=== PATIENT | female | born 1965 | race Caucasian/White ===

== ENCOUNTER → 2022-06-28 13:48 | Outpatient (CLI) | payer OTHER, SELFPAY ==
--- NOTE | ~2022-06-28 | CT_ITS ---
EXAMINATION: CT sinus wo con DATE: 06/28/2022 13:59 INDICATION: Previous right ethmoidectomy. TECHNIQUE: Computed tomography (CT) of the paranasal sinuses was performed without intravenous contra st. The dose-length product was 417.98 mGy-cm. Automated exposure control and iterative reconstructio n technique were employed. COMPARISON: None FINDINGS: There are surgical changes of prior right knee thyroidectomy. There is hypertrophy of the i nferior turbinates. Mild mucosal thickening of the right maxillary sinus. Left ostiomeatal unit is pa tent. No significant nasal septal deviation. No air-fluid levels or mucoperiosteal reaction. Mastoids are pneumatized. IMPRESSION: 1. Mild right maxillary sinus disease. Reviewed, dictated and finalized at location L. LIFE BIOLOGIST
== END ==
PROVIDERS: PCP Physician Assistant; Visit Provider Otolaryngology
DX: R51.9 Headache, unspecified (principal)
CPT/HCPCS: 70486

== ENCOUNTER 2022-07-05 08:26 | Emergency (ER) | payer OTHER, SELFPAY ==
--- NOTE | ~2022-07-05 | XR_ITS ---
EXAMINATION: XR chest 1V portable 07/05/2022 09:20 INDICATION: Hypertension PROCEDURE: AP portable chest COMPARISON: No prior studies for comparison. FINDINGS: The lungs are clear. The cardiomediastinal silhouette is within normal limits. There are no pleural effusions. There is no pneumothorax suspected. IMPRESSION: 1: NO ACUTE CARDIOPULMONARY DISEASE. Reviewed, dictated and finalized at location L. TAL SALES ASSISTANT
--- NOTE | ~2022-07-05 | CT_ITS ---
EXAMINATION: CT brain wo con DATE: 07/05/2022 10:22 INDICATION: Hypertension. Headache. TECHNIQUE: Computed tomography (CT) of the head was performed without intravenous contrast. The dose- length product was 605.33 mGy-cm. Automated exposure control and iterative reconstruction technique w ere employed. COMPARISON: No prior studies for comparison. FINDINGS: Brain parenchymal volume is normal for age. No ventriculomegaly or midline shift. Normal gr ay-white differentiation. Basilar cisterns are patent. Paranasal sinuses and mastoids are pneumatized . No depressed skull fractures. No acute infarction, hemorrhage, mass or mass effect. IMPRESSION: 1. No acute intracranial abnormality. Reviewed, dictated and finalized at location L. ICULUM ADVISORY TEACHER
[2022-07-05 08:30] VITALS: BP 180/97; PULSE 79; RESP 17; TEMP 36.8; O2SAT 99
--- NOTE | 2022-07-05 08:40 | ECG_ITS ---
Measurements Intervals [place] Rate: 71 P: 65 NH: 172 QRS: -72 QRSD: 112 T: 50 QT: 398 QTc: 433 Interpretive Statements SINUS RHYTHM POSSIBLE LEFT ATRIAL ENLARGEMENT INCOMPLETE RIGHT BUNDLE BRANCH BLOCK LEFT ANTERIOR FASCICULAR BLOCK BORDERLINE T WAVE ABNORMALITY- ANTERIOR LEADS BASELINE ARTIFACT- III, AVL ABNORMAL ECG COMPARISON TO PRIOR ECG 07-05-22 8:49 NO SIGNIFICANT CHANGES Electronically Signed On 07-05-2022 9:46:52 FOOD INSPECTOR by Caleb Urias D.O.
[2022-07-05 08:54] VITALS: RESP 16; O2SAT 100
[2022-07-05 09:06] LABS: Basophils Percent Auto 0.6 % (0.2-1.2); Eosinophils Absolute Auto 0.3 K/mm3 (0-0.3); Eosinophils Percent Auto 4.8 % (0-4.4); Hematocrit 43.3 % (37.0-47.0); Hemoglobin 14.3 g/dL (12.0-15.0); Immature Granulocyte Absolute 0.02 K/mm3 (0.00-0.031); Immature Granulocyte Percent A 0.3 % (0-0.5); Lymphocytes Absolute Auto 1.38 K/mm3 (0.9-3.2); Lymphocytes Percent Auto 19.9 % (18.3-44.2); Mean Corpuscular Hemoglobin 30.8 pg (26-34); Mean Corpuscular Volume 93.1 fl (80-100); Mean Platelet Volume 9.2 fl (7.4-10.4); Monocytes Absolute Auto 0.6 K/mm3 (0.1-0.6); Monocytes Percent Auto 8.1 % (2.6-8.5); Neutrophils Absolute Auto 4.6 K/mm3 (1.3-6.7); Neutrophils Percent Auto 66.3 % (45.5-73.1); Platelet Count Result 273 k/mm3 (150-375); Red Blood Count 4.65 M/mm3 (4.2-5.4); White Blood Count 6.9 K/mm3 (4.5-10.0)
[2022-07-05 09:10] LABS: Appearance Urine Clear (Clear); Bilirubin Urine Negative (Negative); Blood Urine Negative (Negative); Color Urine Yellow (Yellow); Glucose Urine UA Negative (Negative); Ketones Urine Negative (Negative); Leukocyte Esterase Ur Negative LEU/UL (Negative); Nitrate Urine Negative (Negative); Protein Urine Negative (Negative); Specific Grav Ur 1.003 (1.001-1.035); Urobilinogen Urine 0.2 mg/dL (<2.0); pH Urine 6.5 (5.0-9.0)
[2022-07-05 09:15] LABS: Alanine Aminotransferase 32 U/L (6-35); Albumin Level 4.4 g/dL (3.5-5.1); Alkaline Phosphatase 60 U/L (38-126); Anion Gap 5 mmol/L (8-16); Aspartate Amino Transferase 36 U/L (14-36); Bilirubin,Total 0.4 mg/dL (0.2-1.3); Blood Urea Nitrogen 16 mg/dL (7-17); Calcium 9.5 mg/dL (8.4-10.2); Carbon Dioxide 31 mmol/L (22-30); Chloride 101 mmol/L (98-107); Estimated CRCL calculation 82 ml/min; Estimated Glomerular Filt Rate > 60; Glucose 98 mg/dL (65-110); Potassium 3.9 mmol/L (3.4-5.0); Sodium 137 mmol/L (137-145)
[2022-07-05 09:17] LABS: Prothrombin Time 12.4 Seconds (11.1-14.7)
[2022-07-05 09:21] LABS: Add Urine Microscopic? NO
[2022-07-05 09:26] LABS: NT Pro B Type Natriuretic Pept 146 pg/mL (19.9-100); Troponin I < 0.012 ng/mL (0.000-0.034)
--- NOTE | 2022-07-05 09:44 | ED.GENADULT ---
HPI - General Adult General Chief complaint: Recheck/Abnormal Lab/Rx Stated complaint: Extremely high blood pressure Time Seen by Provider: 07/05/22 08:40 History of Present Illness HPI narrative: 57-year-old female presenting to the emergency department for evaluation of hypertension. 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 Patient has no prior diagnosis of hypertension. Patient did buy a blood pressure cuff and intermittently checks her blood pressure. Patient states over the last few weeks her blood pressures have been running higher. Patient checked her blood pressure a arm cuff today and it was found to be in the 180s systolic. Patient states he does have some headache associated with this. Patient states she always has some baseline headache. Patient states she did have a short episode of chest pain while in the ED but denies any chest pain previously denies any chest pain currently. Patient has no prior history of [place] Patient presented to the emerged department with her family. Related Data Allergies Allergy/AdvReac Type Severity Reaction Status Date / Time No Known Allergies Allergy Unverified 06/25/22 08:41 Review of Systems Review of Systems: CONSTITUTIONAL: Denies fever, chills, or sweats. EYES: Denies visual changes, redness, or discharge. ENT: Denies rhinorrhea, congestion, sore throat, or otalgia. CARDIOVASCULAR: See HPI RESPIRATORY: Denies cough or dyspnea. GASTROINTESTINAL: Denies abdominal pain, nausea, vomiting, or diarrhea. GENITOURINARY: Denies dysuria or hematuria. SKIN: Denies rash or itching. MUSCULOSKELETAL: Denies back pain, joint pain, or myalgia. NEUROLOGIC: See HPI [facility] Past Medical History Medical History Chronic migraine Sinusitis with nasal polyps Surgical History Surgical History History of hysterectomy Family History Family History Father Patient's father is in good health Hypertension Mother Cerebrovascular accident Hypertension Family history of malignant neoplasm of breast in first degree relative Grandparent Family history of primary malignant neoplasm of liver Other Depression Family history of arthritis Family history of heart disease in male family member before age 55 Social History Social History Smoking status: Former smoker Second hand tobacco smoke exposure: No Smoking end date: 05/06/10 Alcohol intake: current Lack of Transportation: No Lack of Food: Never True Current Housing: I Have Housing Concerned About Future Housing: No Difficulty Paying Gas/Electric Bills: No Difficulty Paying for Meds: No Currently Unemployed: No Education: Master's Degree or Higher Difficulty w/ Childcare or Family Care: No Exam Narrative: APPEARANCE: Well appearing, no pain, no distress, well-nourished. HEAD: normocephalic, atraumatic. EYES: PERRLA/EOMI, conjunctivae clear. NOSE: Normal no drainage EARS:TMS clear with good light reflex. THROAT: Pharynx clear, no exudate. NECK: Supple. No adenopathy, no masses. RESPIRATORY: Airway patent, respirations nonlabored. Clear to auscultation bilaterally, no rales, rhonchi, wheezing. CARDIOVASCULAR: Regular rate and rhythm without murmurs rubs or gallops. ABDOMINAL: Soft, nontender, nondistended, normal bowel sounds MUSCULOSKELETAL: Moves all extremities. Strength/ROM intact, No edema, No calf tenderness. NEURO: Alert. Cranial nerves II through XII intact. Good gait. Good coordination SKIN: Warm, dry. Normal Color Course Course Emergency Course: 67-year-old female history of untreated hypertension presenting to the ED for elevated blood pressures. Patient was hypertensive upon arrival to the e
[2022-07-05 09:50] VITALS: BP 174/89; PULSE 68; RESP 18; O2SAT 100
[2022-07-05] MEDS: hydrALAZINE HCL 20 MG/ML VIAL 10 MG IV PUSH (10:03)
[2022-07-05 10:34] VITALS: BP 145/72; PULSE 65; RESP 20; O2SAT 99
[2022-07-05] MEDS: hydroCHLOROthiazide 25 MG TABLET PO (11:29)
[2022-07-05 12:08] LABS: Troponin I < 0.012 ng/mL (0.000-0.034)
[2022-07-05 12:38] VITALS: BP 156/73; PULSE 65; RESP 15; O2SAT 100
== END 2022-07-05 12:40 | disposition home or self-care (01) ==
PROVIDERS: Emergency Provider Emergency Medicine; PCP Physician Assistant
DX: I10 Essential (primary) hypertension (principal); Z87.891 Personal history of nicotine dependence
CPT/HCPCS: 36415; 70450; 71045; 80053; 81003; 83880; 84484; 85025; 85610; 85730; 93005; 96374; 99284; A9270; J0360

== ENCOUNTER 2022-08-20 15:34 | Outpatient (CLI) | payer OTHER, SELFPAY ==
--- NOTE | ~2022-08-20 | MM_ITS ---
EXAMINATION: MM screening cindy BI w areli HISTORY: Screening mammogram, family history of breast cancer in her mother. TECHNIQUE: Craniocaudal and mediolateral oblique 3-D tomosynthesis images were obtained and synthetic 2-D images were generated. CAD analysis was submitted and interpreted. COMPARISON: 07/15/2013 BREAST PARENCHYMAL COMPOSITION:The breasts are heterogeneously dense, which may obscure small masses. FINDINGS: Benign calcifications are noted. Left breast biopsy clip noted. No suspicious mass, calcifi cation, or architectural distortion are identified in either breast to suggest malignancy. There has been no suspicious interval change. IMPRESSION: No mammographic evidence of malignancy. Recommend routine screening mammography in one year. BI-RADS Category 2: Benign finding(s). Reviewed, dictated and finalized at location .
== END 2022-08-20 15:35 | disposition home or self-care (01) ==
PROVIDERS: PCP Physician Assistant; Visit Provider Physician Assistant
DX: Z12.31 Encounter for screening mammogram for malignant neoplasm of breast (principal)
CPT/HCPCS: 77063; 77067

== ENCOUNTER 2022-10-07 07:24 | Emergency (ER) | payer OTHER, SELFPAY ==
--- NOTE | ~2022-10-07 | XR_ITS ---
XR chest 2V DATE: 10/07/2022 08:10 INDICATION: Chest pressure starting this morning. History of hypertension. TECHNIQUE: PA and lateral views COMPARISON: 07/05/2022 portable AP chest FINDINGS: Normal heart size. No hilar or mediastinal enlargement. No pulmonary infiltrate or consolid ation, pleural effusion or pulmonary vascular congestion or pneumothorax. IMPRESSION: Negative Reviewed, dictated and finalized at location A. IMPRESSION: Negative
[2022-10-07 07:29] VITALS: BP 132/79; PULSE 62; RESP 18; O2SAT 100
--- NOTE | 2022-10-07 07:29 | ECG_ITS ---
Measurements Intervals [place] Rate: 60 P: 74 HI: 176 QRS: 145 QRSD: 118 T: 55 QT: 445 QTc: 448 Interpretive Statements SINUS RHYTHM POSSIBLE LEFT ATRIAL ENLARGEMENT [-0.1mV P WAVE IN V1/V2] INCOMPLETE RIGHT BUNDLE BRANCH BLOCK [90+ ms QRS DURATION, TERMINAL R IN V1/V2, 40+ ms S IN I/aVL/V4/V5/V6] COMPARED TO ECG 07/05/2022 08:50:05 NO SIGNIFICANT CHANGES Electronically Signed On 10-07-2022 12:17:27 CDT by Skylar Lenz M.D.
[2022-10-07 07:32] VITALS: PULSE 62
[2022-10-07 07:39] LABS: Basophils Percent Auto 0.2 % (0.2-1.2); Eosinophils Absolute Auto 0.2 K/mm3 (0-0.3); Eosinophils Percent Auto 3.3 % (0-4.4); Hematocrit 39.5 % (37.0-47.0); Hemoglobin 13.3 g/dL (12.0-15.0); Immature Granulocyte Absolute 0.02 K/mm3 (0.00-0.031); Immature Granulocyte Percent A 0.3 % (0-0.5); Lymphocytes Absolute Auto 1.58 K/mm3 (0.9-3.2); Lymphocytes Percent Auto 25.9 % (18.3-44.2); Mean Corpuscular HGB Conc 33.7 g/dl (32-36); Mean Corpuscular Hemoglobin 30.9 pg (26-34); Mean Corpuscular Volume 91.6 fl (80-100); Mean Platelet Volume 9.2 fl (7.4-10.4); Monocytes Absolute Auto 0.6 K/mm3 (0.1-0.6); Neutrophils Absolute Auto 3.7 K/mm3 (1.3-6.7); Neutrophils Percent Auto 60.3 % (45.5-73.1); Platelet Count Result 270 k/mm3 (150-375); Red Blood Count 4.31 M/mm3 (4.2-5.4); Red Cell Distribution Width 12.4 % (11.5-14.5); White Blood Count 6.1 K/mm3 (4.5-10.0)
[2022-10-07 07:52] LABS: INR 0.9
[2022-10-07 07:53] LABS: Partial Thromboplastin Time 23.4 SECONDS (22.3-36.8)
[2022-10-07 07:56] LABS: Alanine Aminotransferase 29 U/L (6-35); Albumin Level 4.1 g/dL (3.5-5.1); Alkaline Phosphatase 59 U/L (38-126); Anion Gap 5 mmol/L (8-16); Aspartate Amino Transferase 36 U/L (14-36); Bilirubin,Total 0.4 mg/dL (0.2-1.3); Blood Urea Nitrogen 25 mg/dL (7-17); Carbon Dioxide 32 mmol/L (22-30); Chloride 100 mmol/L (98-107); Estimated CRCL calculation 82 ml/min; Estimated Glomerular Filt Rate > 60; Glucose 90 mg/dL (65-110); Lipase 118 U/L (23-300); Potassium 3.5 mmol/L (3.4-5.0); Sodium 137 mmol/L (137-145)
--- NOTE | 2022-10-07 07:57 | ED.GENADULT ---
HPI - General Adult General Chief complaint: Unspecified Stated complaint: I think I'm having heart attack Time Seen by Provider: 10/07/22 07:33 History of Present Illness HPI narrative: 57-year-old female presented to the emergency department for evaluation of an episode of chest pressure that radiated up to her neck. Patient reports this morning at approximately 6 AM she was playing her piano and had onset of a flushed feeling that passed from her chest into her neck. Patient states at that time she reports that she tried speaking to her dog and she felt that her speech was changed. Patient reports the symptoms lasted approximately 10 to 15 minutes. Patient states during this time she was able to use her phone to google the side effects and she became concerned for a heart attack. Upon arrival to the ED patient denies any headache, nausea vomiting numbness or weakness. Patient has no slurred speech. Patient has no prior history of [place] TIA or CVA. Patient reports he did have a stress test approximately 2016. Patient does take medication for her blood pressure and states her blood pressure is controlled. Upon arrival to the ED patient states she is still having some left-sided chest pressure. Patient did take 81 mg of aspirin at home. Related Data Allergies Allergy/AdvReac Type Severity Reaction Status Date / Time No Known Allergies Allergy Verified 10/07/22 07:33 Review of Systems Review of Systems: All systems reviewed & are unremarkable except as noted in HPI and below PMFSH Past Medical History Medical History Chronic migraine Sinusitis with nasal polyps Surgical History Surgical History History of hysterectomy Family History Family History Father Patient's father is in good health Hypertension Mother Cerebrovascular accident Hypertension Family history of malignant neoplasm of breast in first degree relative Grandparent Family history of primary malignant neoplasm of liver Other Depression Family history of arthritis Family history of heart disease in male family member before age 55 Social History Social History Smoking status: Former smoker Second hand tobacco smoke exposure: No Smoking end date: 05/06/10 Alcohol intake: current Lack of Transportation: No Lack of Food: Never True Current Housing: I Have Housing Concerned About Future Housing: No Difficulty Paying Gas/Electric Bills: No Difficulty Paying for Meds: No Currently Unemployed: No Education: Master's Degree or Higher Difficulty w/ Childcare or Family Care: No Exam Narrative: APPEARANCE: Well appearing, no pain, no distress, well-nourished. HEAD: normocephalic, atraumatic. EYES: PERRLA/EOMI, conjunctivae clear. NOSE: Normal no drainage. RESPIRATORY: Airway patent, respirations nonlabored. Clear to auscultation bilaterally, no rales, rhonchi, wheezing. CARDIOVASCULAR: Regular rate and rhythm without murmurs rubs or gallops. ABDOMINAL: Soft, nontender, nondistended, normal bowel sounds MUSCULOSKELETAL: Moves all extremities. Strength/ROM intact, No edema, No calf tenderness. NEURO: Alert. Cranial nerves II through XII intact. Normal strength reflexes coordination no ataxia SKIN: Warm, dry. Normal Color PSYCHIATRIC: Normal affect/mood. Course Course Emergency Course: 57-year-old female presents to ED for evaluation of chest pressure. Patient did take 81 mg of aspirin at home patient was treated with the additional 243 mg of p.o. aspirin here patient was also treated with nitro. Upon arrival patient's EKG shows normal sinus rhythm with no acute ischemic changes. Patient was updated on the results of her EKG her vitals and on the plan for treatment and for further work-up.
--- NOTE | 2022-10-07 08:05 | PC.NURSE ---
pt. to xr
[2022-10-07 08:06] LABS: Troponin I < 0.012 ng/mL (0.000-0.034)
[2022-10-07] MEDS: ASPIRIN 81 MG CHEWABLE TABLET 243 MG PO (08:13)
[2022-10-07 09:42] VITALS: BP 134/70; PULSE 58; RESP 14; O2SAT 100
--- NOTE | 2022-10-07 09:42 | PC.NURSE ---
RN in to assess pt. pt. states I want to go home. There is clearly nothing wrong. ERP made aware
[2022-10-07 11:33] LABS: Troponin I < 0.012 ng/mL (0.000-0.034)
[2022-10-07 12:08] VITALS: BP 128/76; PULSE 66; RESP 16; O2SAT 99
== END 2022-10-07 12:09 | disposition home or self-care (01) ==
PROVIDERS: Emergency Provider Emergency Medicine; PCP Physician Assistant
DX: R07.89 Other chest pain (principal); I10 Essential (primary) hypertension; Z87.891 Personal history of nicotine dependence
CPT/HCPCS: 36415; 71046; 80053; 83690; 84484; 85025; 85610; 85730; 93005; 99284; A9270

== ENCOUNTER 2023-11-13 16:27 | Outpatient (CLI) | payer OTHER, SELFPAY ==
--- NOTE | ~2023-11-13 | MM_ITS ---
EXAMINATION: MM screening cindy BI w areli HISTORY: Screening TECHNIQUE: Craniocaudal and mediolateral oblique 3-D tomosynthesis images were obtained and synthetic 2-D images were generated. CAD analysis was submitted and interpreted. COMPARISON: Comparison to multiple prior studies sequentially, with oldest reviewed study dated 08/02. BREAST PARENCHYMAL COMPOSITION: Dense: The breasts are heterogeneously dense, which may obscure small masses FINDINGS: There is no evidence of suspicious mass, calcification, or architectural distortion to sugg est malignancy in either breast. There has been no suspicious interval change. IMPRESSION: 1. No mammographic evidence of malignancy. 2. Recommend routine screening mammography in one year. BI-RADS Category 1: Negative Reviewed, dictated and finalized at location B.
== END 2023-11-13 16:28 | disposition home or self-care (01) ==
LOC: ANHIMG 16:30
PROVIDERS: PCP Physician Assistant; Visit Provider Physician Assistant
DX: Z12.31 Encounter for screening mammogram for malignant neoplasm of breast (principal)
CPT/HCPCS: 77063; 77067

== ENCOUNTER 2025-03-09 15:09 | Outpatient (CLI) | payer OTHER, SELFPAY ==
--- OUTSIDE RECORDS SUMMARY | 2023-10-19 15:30 | XMS_ITS ---
Author Organization [facility] ([address]) Address [address] [place] [address] Care Team Providers Care Control Room Helper Name Role Phone Anabelle Matos Unavailable [phone] ZZ-Migration, Provider Unavailable Unavailab le REAS[facility]IT [facility] Conversion Encounter Medications Medication SIG (Take, Route, Frequency, Duration) Notes Start Date End Date Status Fluticasone Propionate 50 MCG/ACT 2 spray(s) in each nostril BID; Duration: 30 day(s) Active EpiPen 2-Rasheed 0.3 MG/0.3ML as directed intramuscularly once; Duration: 30 days Active NASAL WASHES N/A DIRECTED INTRANASALLY NEEDED; Duration: 30 DAYS *Please review for potential replacement for e-prescription and drug interaction check* Active Triamcinolone Acetonide 0.1 % 1 no applied topically PRN after SCIT PRN; Duration: 7 days 04/15/2023 Active SIT (TRADITIONAL) VARIABLE PER SCHEDULE SC PER SCHEDULE; Duration: 1 DAYS *Please review for potential replacement for e-prescription and drug interaction check* 04/15/2023 Active SIT (CLUSTER) VARIABLE PER SCHEDULE SC P ER SCHEDULE; Duration: TO BE DETERMINED *Please review for potential replacement for e-prescription and drug interaction check* 2023 Active Amitriptyline HCl 25 MG 1 tab(s) orally once a day (at bedtime); Duration: 30 day(s) Active hydroCHLOROthiazide 25 MG 1 tab(s) orally once a day Active Jesica Allergy 180 MG 1 tab(s) orally o nce a day Active Encounters Encounter Location Date Provider Diagnosis [place] [place] [address] 10/19/2023 Provider Shahzad Plan Of Treatment No Information Progress Notes * Richelle FOWLERDOB: [birth year] (60 yo F)Acc No.[id number]:10/19/2023 Patient: Richelle BECKFORD Provider: Argelia Peng :1965 A ge:58 Y S ex:Female Date:10/19/2023 Address:[address] [place] [address], [facility] Subjective: * Chief Complaints: * 1 . [facility] To [facility] Conversion Encounter. * Medical History: * Medications: T aking Amitriptyline HCl 25 MG Tablet 1 tab(s) orally once a day (at bedtime) , Taking SIT (CLUSTER) VARIABLE SEE RECORD PER SCHEDULE SC PER SCHEDULE , Notes to Pharmacist: *Please review for potential replacement for e-prescription and drug interaction check*, Taking hydroCHLOROthiazide 25 MG Tablet 1 tab(s) orally once a day , Taking Jesica Allergy 180 MG Tablet 1 tab(s) orally once a day , Taking Fluticasone Propionate 50 MCG/ACT Suspension 2 spray(s) in each nostril BID , Taking NASAL WASHES N/A 1 QUART OF STERILIZED TAP WATER OR DISTILLED WATER, 1 TSP NACL, 1 PINCH OF BAKING SODA DIRECTED INTRANASALLY NEEDED , Notes to Pharmacist: *Please review for potential replacement for e-prescription and drug interaction check*, Taking EpiPen 2-Rasheed 0.3 MG/0.3ML Solution Auto-injector as directed intramuscularly once , Taking SIT (TRADITIONAL) VARIABLE SEE RECORD PER SCHEDULE SC PER SCHEDULE , Notes to Pharmacist: *Please review for potential replacement for e-prescription and drug interaction check*, Taking Triamcinolone Acetonide 0.1 % Ointment 1 no applied topically PRN after SCIT PRN Objective: * Vitals: Assessment: Plan: * Treatment: * Billing Information: * Visit Code: * Procedure Codes: * Electronic signature of Gary Pike on 03/09/2025 at 04:29 PM MUSEUM HOST/HOSTESS Sign off status: Pending * Provider: Argelia parks Migration Date: 0 10/19/2023 Generated for Mimi roa/Michelle/Natalya on: 1 05/09/2024 04:29 PM MUSEUM HOST/HOSTESS
--- NOTE | ~2025-03-09 | MM_ITS ---
EXAMINATION: MM screening cindy BI w areli HISTORY: Screening TECHNIQUE: Craniocaudal and mediolateral oblique 3-D tomosynthesis images were obtained and synthetic 2-D images were generated. CAD analysis was submitted and interpreted. COMPARISON: Comparison to multiple prior studies sequentially, with oldest reviewed study dated , 08/02/2010 BREAST PARENCHYMAL COMPOSITION: The breasts are heterogeneously dense, which may obscure small masses. FINDINGS: There is no evidence of suspicious mass, calcification, or architectural distortion to suggest malignancy in either breast. IMPRESSION: 1. No mammographic evidence of malignancy. 2. Recommend routine screening mammography in one year. BI-RADS Category 1: Negative Reviewed, dictated and finalized at location B. LINE TECHNICIAN
--- OUTSIDE RECORDS SUMMARY | 2025-03-09 16:29 | XMS_ITS | Clinical Summary ---
Author Organization [facility] Address [address] [place] [id number] Phone Care Team Providers Care Artist And Repertoire Manager Name Role Phone Rosetta Ellis Primary Care Prov ider Allergies No known active allergies Medications No known medications Active Problems Problem Noted Date Diagnosed Date Fibroadenoma of breast 10/25/2014 Abnormal findings on diagnostic imaging of breas t 08/05/2013 Surgical History Surgery Date Site/Laterality Comments FOREARM SURGERY SINUS SURGERY TUBAL LIGATION Family History Medical History Relation Name Comments Breast cancer Mother Adenocarcinoma of breast - (Added by TW Conv) Depression Other Relation Name Status Comments Mother Other Social History Tobacco Use Types Packs/Day Years Used Date Smoking Tobacco: Former Cigarettes Q uit: 2011 Tobacco Cessation:Counseling Given: Not Answered Personal Safety Answer Date Recorded Getting School Help Needed Not on file 07/19 Comments Unknown Sex and Gender Information Value Date Recorded Sex Assigned at Not on file Legal Sex Female 10:56 AM 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 Gender Identity Not on file Sexual Orientation Not on file Last Filed Vital Signs Vital Sign Reading Time Taken Comments Blood Pressure 163/85 05/28/2022 3:08 PM 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 Pulse 75 05/28/2022 3:08 PM 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 Temperature - - Respiratory Rate - - Oxygen Saturation - - Inhaled Oxygen Concentration - - Weight 67.2 kg (148 lb 1.8 oz) 05/28/2022 3:08 P M 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 Height 177.8 cm (5' 10) 05/28/2022 3:08 PM 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 Body Mass Index 21.25 05/28/2022 3:08 PM 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 Plan of Treatment Health Maintenance Due Date Last Done Comments Cervical Cancer Screening 1965 Colon Cancer Screening-Colonoscopy 1965 Depression Screening 1965 Hepatitis C Screening 1965 DTaP/Tdap/Td Vaccine (1 - Tdap) 02/10/1975 Hepatitis B Screening 02/10/1982 Regular Well Visit/Exam 18-64 02/10/1982 Zoster Vaccine (1 of 2) 02/10/2014 Breast Cancer Screening-Mammogram 10/26/2015 015 Covid-19 Vaccine (2 - 2024-2 6 season) 2025 03/13/2022 Influenza Vaccine (#1) 2025 Pneumococcal vaccine <65 Aged Out No longer eligible based on patient's age to complete this topic Procedures Procedure Name Priority Date/Time Associated Diagnosis Comments SCREENING MAMMOGRAM W RICH Routine 10/25/2014 9:48 AM CDT from Last 3 Months or Most Recently Relevant to Health Maintenance Results * Screening Mammogram W Rich (10/25/2014 9:48 AM CDT) Anatomical Region Laterality Modality Breast N/A Mammography 10/25/2014 9:48 AM CDT Narrative 10/25/2014 10:02 AM CDT BRITNEY RODRIGUEZ M.D. FINAL REPORT ACC# Date Time Exam [id number] Oct 25, 2014 09:48:00 [facility] [place] [id number] Bilateral screen w rich Technologist(s): Fallon Fox; ; EXAMINATION: Mammogram Technique: Bilateral Full-Field Digital Screening Mammogram and Digital Breast Tomosynthesis were performed. Views obtained: bilateral craniocaudal and bilateral mediolateral oblique. Computer Aided Detection of the 2D images was performed with AssayMetrics.3 version 9.3. Mammogram Findings: Comparison is made with prior exams dating back to 2010. The breasts are heterogeneously dense which could obscure a lesion on mammography. There are round calcifications with diffuse/scattered distribution in both breasts. Finding remains unchanged from the prior study. IMPRESSION: Calcifications in both breasts are benign. Annual screening mammography is recommended. OVERALL FINAL ASSESSMENT: BI-RADS CATEGORY 2: Benign. Requested By: Dictated By: BRITNEY RODRIGUEZ M.D. on Oct 25 2014 10:02A This document has been electronically signed by: BRITNEY RODRIGUEZ M.D. on Oct 25 2014 10:02A [id number] Procedure Note Provider, MD Elizabeth - 09/09/2016 BRITNEY RODRIGUEZ M.D. FINAL REPORT ACC# Date Time Exam [id number] Oct 25, 2014 09:48:00 [facility] [place] [id number] Bilateral screen w rich Technologist(s): Fallon Fox; ; EXAMINATION: Mammogram Technique: Bilateral Full-Field Digital Screening Mammogram and Digital Breast Tomosynthesis were performed. Views obtained: bilateral craniocaudaland bilateral mediolateral oblique. Computer Aided Detection of the 2Dimages was performed with AssayMetrics.3 version 9.3. Mammogram Findings: Comparison is made with prior exams dating back to 2010. The breasts are heterogeneously dense which could obscure a lesion on mammography. There are round calcifications with diffuse/scattered distribution inboth breasts. Finding remains unchanged from the prior study. IMPRESSION: Calcifications in both breasts are benign. Annual screening mammography is recommended. OVERALL FINAL ASSESSMENT: BI-RADS CATEGORY 2: Benign. Requested By: Dictated By: BRITNEY RODRIGUEZ M.D. on Oct 25 2014 10:02A This document has been electronically signed by: BRITNEY RODRIGUEZ M.D. on Oct 25 2014 10:02A [id number] Historical Provider MD [facility] MAMMO PROCEDURES Nimo l Result from Last 3 Months or Most Recently Relevant to Health Maintenance Insurance [facility] PPO Care Teams Artist And Repertoire Manager Relationship Specialty Start Date End Date Rosetta Ellis PA PCP - General Neurosurgery 05/14/22
--- OUTSIDE RECORDS SUMMARY | 2025-03-09 16:30 | XMS_ITS | Patient Health Record ---
Author Organization [facility] [place] ([address]) Address [address] [place] [address] Care Team Providers Care Fire Extinguisher Technician Name Role Phone Anabelle Matos Unavailable [phone] Allergies No Known Allergies Reason For Referral No Information Medications Medication SIG (Take, Route, Frequency, Duration) Notes Start Date End Date Status EPIPEN 2-RASHEED 0.3 mg as directed intramuscularly once; Duration: 30 days Active SIT (CLUSTER) VARIABLE PER SCHEDULE SC P ER SCHEDULE; Duration: TO BE DETERMINED *Please review for potential replacement for e-prescription and drug interaction check* 2023 Active Amitriptyline HCl 25 MG 1 tab(s) orally once a day (at bedtime); Duration: 30 day(s) Active hydroCHLOROthiazide 25 MG 1 tab(s) orally once a day Active Fluticasone Propionate 50 MCG/ACT 2 spray(s) in each nostril BID; Duration: 30 day(s) Active Pal Allergy 180 MG 1 tab(s) orally o nce a day Active EpiPen 2-Rasheed 0.3 MG/0.3ML as directed [...] e-prescription and drug interaction check* 04/15/2023 Active TRIAMCINOLONE TOPICAL 0.1% 1 no applied topically PRN after SCIT PRN; Duration: 7 days 04/15/2023 Active AMITRIPTYLINE 25 mg 1 tab(s) orally once a day (at bedtime); Duration: 30 day(s) Active PAL 24 HOUR ALLERGY 180 mg 1 tab(s) orally once a day Active HYDROCHLOROTHIAZIDE 25 mg 1 tab(s) orally once a day Active FLUTICASONE NASAL 50 mcg/inh 2 spray(s) in each nostril BID; Duration: 30 day(s) Active Social History Tobacco Use: Social History Observation Description Date Details (start date - stop date) Former Smoker NA - NA Smoking Smart Form: Question Answer Notes Are you a: former smoker How long it has been since y ou last smoked? > 10 years Additional Findings:Tobacco User Light cigarette smoker ((1-9 cigs/day) Additional Findings:Tobacco Non-User Ex- moderate cigarette smoker (10-19/day) Problems Problem Type SNOMED Code ICD Code Onset Dates Problem Status W/U Status Risk Notes Problem Chronic migraine without aura, non-intractable (878194564164068) Chronic migraine without aura, not intractable, without status migrainosus (G43.709) Active confirmed Problem Chronic allergic conjunctivitis (15844661) Other chronic allergic conjunctivitis (H10.45) Active confirmed Problem Essential hypertension (35612101) Essential (primary) hypertension (I10) Active confirmed Problem Allergic rhinitis caused by pollen (disorder) (35824326) Allergic rhinitis due to pollen (J30.1) Active confirmed Problem Allergic rhinitis (20027336) Other allergic rhinitis (J30.89) Active confirmed Problem Allergic rhinitis caused by pollen (disorder) (43732608) Allergic rhinitis due to pollen (J30.1) Active confirmed Problem Allergic rhinitis caused by animal hair and dander (444600968861305) Allergic rhinitis due to animal (cat) (dog) hair and dander (J30.81) Active confirmed Problem Allergic rhinitis (01037810) Other allergic rhinitis (J30.89) Active confirmed Plan Of Treatment No Information Insurance Providers Payer Name Payer Address Payer Phone Subscriber Number Group Number Insured Name Patient Relationship to Insured Coverage Start Date Coverage End Date Aet[employer] Choice II [address] [address] [place], [place] [phone] [id number] Richelle Fowler Self - patient is the insured Medical (General) History Medical History History ICD Code HTN Allergic rhinitis Cervical DDD Migraine Surgical History Surgery Date(Month/Year) Ear tubes Sinus surgery
--- OUTSIDE RECORDS SUMMARY | 2025-03-09 16:30 | XMS_ITS | Patient Health Record ---
Author Organization [facility] [place] Address [address] [place] [address] Support Name Relationship Address Phone Richelle Fowler Guarantor Unknown [phone] Allergies No Known Allergies Reason For Referral No Information Medications Medication SIG (Take, Route, Frequency, Duration) Notes Start Date End Date Status metroNIDAZOLE topical 1% 1 no apply to face and back once a day; Duration: 30 days 06/21/2021 Active Betamethasone-Clotrimazole 0.05%-1% 1 no apply to back 2 times a day; Duration: 15 days 06/21/2021 Active Immunizations Vaccine Route Administration Date Status Comme nts Pneumococcal Unknown 06/21/2021 Refused Influenza Unknown 06/21/2021 Refused Social History Tobacco Use: Social History Observation Description Date Details (start date - stop date) Never Smoker NA - NA Tabacco Use: Question Answer Notes Are you a: nonsmoker Problems Problem Type SNOMED Code ICD Code Onset Dates Problem Status W/U Status Risk Notes Problem Telangiectasia (772116871) Telangiectasia (I78.1) Active confirmed Problem Xerosis cutis (14383003) Xerosis cutis (L85.3) Active confirmed Problem Pruritus (746360002) PRURITUS (L29.8) Active confirmed Problem Viral screening (275190692) Encounter for screening for other viral diseases (Z11.59) Active confirmed Problem Exposure to communicable disease (773439344) Contact with and (suspected) exposure to other viral communicable diseases (Z20.828) Active confirmed Problem Actinic keratosis (305654202) Actinic keratosis (L57.0) Active confirmed Problem Atopic dermatitis (30161043) ATOPIC DERMATITIS, OTHER (L20.89) Active confirmed Problem Skin changes due to chronic exposure to non-ionizing radiation (965855046) Other skin changes due to chronic exposure to nonionizing radiation (L57.8) Active confirmed Problem Rosacea (740679231) ROSACEA, OTHER (L71.8) Active confirmed Plan Of Treatment No Information Insurance Providers Payer Name Payer Address Payer Phone Subscriber Number Group Number Insured Name Patient Relationship to Insured Coverage Start Date Coverage End Date A[employer] [address] [address] [place] [address] [id number] Rcihelle Fowler Self - patient is the insured Medical (General) History Surgical History Surgery Date(Month/Year) (L) Arm Surgery. Sinus Surgery Tubes in ears (as Kids)
--- OUTSIDE RECORDS SUMMARY | 2025-03-09 16:30 | XMS_ITS | Encounter Summary ---
Author Organization [facility] Address [address] [place] [phone] Phone Care Team Providers Care Healthcare Marketer Name Role Phone Rosetta Ellis Primary Care Pro vider Reason for Visit * Reason Comments Medication Refill Encounter Details Date Type Department Care Team (Late st Contact Info) Description 07/21/2023 Refill [facility] - Internal Medicine - [place] [address] [place] [id number] Rosetta Ellis, [facility] [address] [place] [address] Medication Refill Social History Tobacco Use Types Packs/Day Years Used Date Smoking Tobacco: Never Smokeless Tobacco: Never Alcohol Use Standard Drinks/Week Comments Yes 20 (1 standard drink = 0.6 oz pu re alcohol) PHQ-2 Answer Date Recorded Total Score - Questions 1-9 1 07/06 Education Answer Date Recorded What is the highest level of school you have completed or the highest degree you have received? Master's degree (e.g., MA, MS, Herberth, MEd, LEATHER FITTER, THOR) 07/09/2022 Comments No Sex and Gender Information Value Date Recorded Sex Assigned at Not on file Legal Sex Female 6:39 AM NEONATAL DOCTOR Gender Identity Not on file Sexual Orientation Not on file documented as of this encounter Plan of Treatment Not on file documented as of this encounter Visit Diagnoses Not on filedocumented in this encounter Additional Health Concerns Assessment Noted Time PHQ-9 Depression Total Score: 1 08/04/19 2:00 PM CDT documented as of this encounter Care Teams Healthcare Marketer Relationship Specialty Start Date End Date Rosetta Ellis PAC PCP - General Physician Tax Specialist 05/14/22 documented as of this encounter
--- OUTSIDE RECORDS SUMMARY | 2025-03-09 16:30 | XMS_ITS | Clinical Summary ---
Author Organization [facility] Address [address] [place] [address] Phone Care Team Providers Care Senior Stock Plan Administrator Name Role Phone Rosetta Ellis PAC Primary Care Pro vider Allergies No known active allergies Medications hydroCHLOROthia zide 25 MG Tablet TAKE 1 TABLET BY MOUTH DAILY 90 Tablet 3 5 Active escitalopram (LEXAPRO) 10 MG Tablet TAKE 1 TABLET BY MOUTH DAILY 90 Tablet 5 Active escitalopram (LEXAPRO) 10 MG Tablet Take 1 Tablet by mouth daily. 90 Tablet 5 02/16/20 25 Discontinued Active Problems Problem Noted Date Diagnosed Date Migraine 11/02/2022 Primary hypertension 11/02/2022 Elevated LFTs 05/14/2022 Alcohol use 05/14/2022 H/O colonoscopy 05/14/2022 Overview (05/14/2022): Pt refuses future colonoscopy Agreeable cologuard Joint pain 05/14/2022 Encounters Date Type Department Care Team Description 02/15/2025 Refill [facility] - Internal Medicine - [place] [address] [place] [address] Rosetta Ellis, CHEMA Medication Refill from Last 3 Months Family History Medical History Relation Name Comments Hypertension Father Cancer Mother Relation Name Status Comments Father Alive Mother Social History Tobacco Use Types Packs/Day Years Used Date Smoking Tobacco: Never Smokeless Tobacco: Never Tobacco Cessation:Counseling Given: No Alcohol Use Standard Drinks/Week Comments Yes 20 (1 standard drink = 0.6 oz pu re alcohol) [facility] Utilities Answer Date Recorded In the past 12 months has th e electric, gas, oil, or water company threatened to shut off services in your home? No 08/13/2024 Social Connection and Isolation Panel Answer Date Recorded In a typical week, how many times do you talk on the phone with family, friends, or neighbors? Once a week 08/13/2024 How often do you get together with friends or re latives? Once a week 08/13/2024 How often do you attend temple or yazidi serv ices? Never 08/13/2024 Do you belong to any clubs o r organizations such as temple groups, unions, fraternal or athletic groups, or school groups? No 08/13/2024 How often do you attend meet ings of the clubs or organizations you belong to? Never 08/13/2024 Are you , , di vorced, , never , or living with a partner? 08/13/2024 AUDIT-C Answer Date Recorded Q1: How often do you have a drink containing alcohol? 4 or more times a week 08/13/2024 Q2: How many drinks containi ng alcohol do you have on a typical day when you are drinking? 3 or 4 Q3: How often do you have si x or more drinks on one occasion? Monthly 08/13/2024 Overall Financial Resource Strain (CARDIA) Answe r Date Recorded How hard is it for you to pa y for the very basics like food, housing, medical care, and heating? Not very hard 08/13/2024 PHQ-2 Answer Date Recorded Total Score - Questions 1-9 1 07/06 [facility] Cord of Occupat ional Health - Occupational Stress Questionnaire Answer Date Recorded Do you feel stress - tense, restless, nervous, or anxious, or unable to sleep at night because your mind is troubled all the time - these days? Rather much 08/13/2024 Exercise Vital Sign Answer Date Recorde d On average, how many days pe r week do you engage in moderate to strenuous exercise (like a brisk walk)? 6 days 08/13/2024 On average, how many minutes do you engage in exercise at this level? 20 min 08/13/2024 Hunger Vital Sign Answer Date Recorded Within the past 12 months, y ou worried that your food would run out before you got the money to buy more. Never true 08/14/19 25 Within the past 12 months, t he food you bought just didn't last and you didn't have money to get more. Never true 08/13/2024 PRAPARE - Transportation Answer Date Re corded In the past 12 months, has l ack of transportation kept you from medical appointments or from getting medications? No 08/04 In the past 12 months, has l ack of transportation kept you from meetings, work, or from getting things needed for daily living? No 08/13/2024 Housing Stability Vital Sign Answer Luis e Recorded In the last 12 months, was t here a time when you were not able to pay the mortgage or rent on time? No 08/14/2023 In the last 12 months, how many places have you lived? 2 08/14/2023 In the last 12 months, was t here a time when you did not have a steady place to sleep or slept in a long-term (including now)? No 08/14/2023 Housing Stability Vital Sign Answer Luis e Recorded In the last 12 months, was t here a time when you were not able to pay the mortgage or rent on time? No 08/13/2024 Number of Times Moved in the Last Year Not on fi le 08/13/2024 At any time in the past 12 m [place], were you homeless or living in a long-term (including now)? No 08/13/2024 Education Answer Date Recorded What is the highest level of school you have completed or the highest degree you have received? Master's degree (e.g., MA, MS, Herberth, MEd, FUSE MAKER, THOR) 07/09/2022 Comments No Sex and Gender Information Value Date Recorded Sex Assigned at Not on file Legal Sex Female 6:39 AM SHAKE CUTTER Gender Identity Not on file Sexual Orientation Not on file Last Filed Vital Signs Vital Sign Reading Time Taken Comments Blood Pressure 104/62 08/14/2024 3:41 PM CDT Pulse 66 08/14/2024 3:41 PM CDT Temperature 36.3 C (97.4 F) 08/14/2024 3:41 PM CDT Respiratory Rate 12 08/14/2024 3:41 PM CDT Oxygen Saturation 99% 08/14/2024 3:41 PM CDT Inhaled Oxygen Concentration - - Weight 48.1 kg (106 lb) 08/14/2024 3:41 PM CDT Height 177.8 cm (5' 10) 02/06/2023 3:58 PM CDT Body Mass Index 15.21 02/06/2023 3:58 PM CDT Plan of Treatment Health Maintenance Due Date Last Done Comments Hepatitis C Virus (HCV) Screening 1965 TdaP Immunization 1965 Cologuard 02/10/2009 Colonoscopy 02/10/2009 Colorectal Cancer Screening 02/10/2009 Immunochemical Fecal Occult Blood 02/10/2009 Pneumococcal Immunization (5 0+ years) (1 of 1 - PCV) 02/10/2014 Zoster Immunization (1 of 2) 02/10/2014 Mammogram 11/12/2024 11/13/2023, 08/20/2022 Influenza Immunization (#1) 2025 SARS-COV-2 Immunization (2 - season) 2025 03/13/2022 Respiratory Syncytial Virus (RSV) Immunization (Adult) (1 - 1-dose 75+ series) 02/10/2039 Hepatitis B Immunization Aged Out No longer eligible based on patient's age to complete this topic Human Papillomavirus (HPV) Immunization Aged Out No longer eligible b ased on patient's age to complete this topic Meningococcal Immunization (ACWY) Aged Out No longer eligible b ased on patient's age to complete this topic Rotavirus Immunization Aged Out No lo nger eligible based on patient's age to complete this topic Procedures Procedure Name Priority Date/Time Associated Diagnosis Comments MAMMOGRAM BILATERAL GENERIC 11/13/2023 12:00 AM CDT from Last 3 Months or Most Recently Relevant to Health Maintenance Results * MAMMOGRAM BILATERAL MISCELLANEOUS (11/13/2023 12:00 AM CDT) 11/13/2023 us Provider Scan IMG MAMMO ORDERABLES Final Resul t SCAN from Last 3 Months or Most Recently Relevant to Health Maintenance Insurance [facility] Care Teams Senior Stock Plan Administrator Relationship Specialty Start Date End Date Rosetta Ellis, CHEMA PCP - General Physician Vehicle Damage Appraiser 05/14/22
== END 2025-03-09 15:10 | disposition home or self-care (01) ==
LOC: ANHFOHIMG 15:10
PROVIDERS: PCP Physician Assistant; Visit Provider Physician Assistant
DX: Z12.31 Encounter for screening mammogram for malignant neoplasm of breast (principal)
CPT/HCPCS: 77063; 77067